=== PATIENT | female | born 1985 | race Caucasian/White ===

== ENCOUNTER 2020-04-05 11:29 | Emergency (ER) | payer OTHER ==
[2020-04-05 11:35] VITALS: BP 139/79; PULSE 70; RESP 18; TEMP 98.5
[2020-04-05] MEDS ORDERED: Acetaminophen-Codeine 300-30mg TAB PO STA (11:45)
[2020-04-05] MEDS ORDERED: diphenhydrAMINE 25 MG CAP PO STA (11:45)
--- NOTE | 2020-04-05 11:50 | ED ---
General Adult HPI - General Chief complaint: Headache Stated complaint: Pasquale note, headache Time Seen by Provider: 04/05/20 11:36 Source: patient, RN notes reviewed, old records reviewed Mode of arrival: ambulatory Limitations: no limitations - History of Present Illness Initial comments: 34-year-old female patient comes to ED for chief complaint of headache. Patient reports that she has been working a lot recently and she is very tired. She believes that this headache is due to her having no sleep. She woke up at approximately 6:30 so that she woke up she began to experience a bitemporal headache. Reports it feels similar to headache she has had in the past. Patient was scheduled to work approximately one hour later with lots of loud noises the headache got worse. Denies any red flag symptoms. Denies worst headache of life. Denies any visual changes. Denies any chance of being . Systemic: Pt denies fatigue, fever/chills, rash. Pt denies weakness, night sweats, weight loss. Neuro: Pt denies visual disturbances, syncope or pre-syncope. HEENT: Pt denies ocular discharge or irritation, otalgia, rhinorrhea, pharyngitis or notable lymphadenopathy. Cardiopulmonary: Pt denies chest pain, SOB, heart palpitations, dyspnea on exertion. Abdominal/GI: Pt denies abdominal pain, n/v/d. : Pt denies dysuria, burning w/ urination, frequency/urgency. Denies new onset urinary or bowel incontinence. MSK: Pt denies myalgia, loss of strength or function in extremities. Neuro: Pt denies new onset weakness, paresthesias. - Related Data Previous Rx's Medication Instructions Recorded Albuterol Inhaler (Mhu) [Ventolin 2 puff INHALATION Q4HR PRN #1 09/24/15 Hfa Inhaler (Mhu)] inhaler Levofloxacin [Levaquin] 750 mg PO DAILY #7 tab 09/24/15 predniSONE 50 mg PO DAILY #5 tab 09/24/15 Allergies Allergy/AdvReac Type Severity Reaction Status Date / Time Penicillins Allergy Unknown Verified 04/05/20 11:35 Childhood Review of Systems ROS Statement: Those systems with pertinent positive or pertinent negative responses have been documented in the HPI. ROS Other: All systems not noted in ROS Statement are negative. Past Medical History Past Medical History: No Reported History History of Any Multi-Drug Resistant Organisms: None Reported Past Surgical History: Ear Surgery Past Psychological History: ADD/ADHD, Anxiety, Bipolar, Depression Smoking Status: Current every day smoker Past Alcohol Use History: Occasional Past Drug Use History: Cocaine, Methamphetamine General Exam - General Exam Comments Initial Comments: Constitutional: NAD, AOX3, Pt has pleasant affect. HEENT: NC/AT, trachea midline. External ears appear normal, without discharge. Mucous membranes moist. Eyes PERRLA, EOM intact. There is no scleral icterus. No pallor noted. Cardiopulmonary: RRR, no murmurs, rubs or gallops, no JVD noted. Lungs CTAB in anterior and posterior salas. No peripheral edema. Abdominal exam: Abdomen soft and non-distended. Abdomen non-tender to palpation in all 4 quadrants. Bowel sounds active in LLQ. No hepatosplenomegaly. No ecchymosis Neuro: CN II-XII intact. No nuchal rigidity. No raccon eyes, no betts sign, no hemotympanum. No cervical spinal tenderness. MSK: No posterior calf tenderness bilaterally, homans sign negative bilaterally. Posterior tibialis and radial pulse +2 bilaterally. Sensation intact in upper and lower extremities. Full active ROM in upper and lower extremities, 5/5 stregnth. Limitations: no limitations Course Vital Signs 04/05/20 11:32 Temperature 98.5 F Pulse Rate 70 Respiratory 18 Rate Blood Pressure 139/79 O2 Sat by Pulse 99 Oximetry Medical Decision Making - Medical Decision Making 34-year-old female patient with the for chief complaint of acute headache. Patient reports a bitemporal in nature. Feels similar to headaches she is experiencing before without any red flag symptoms. Patient will tender stable, afebrile. Physical exam is acute pathology. Neurologic exam is intact. Patient was offered a CT of the brain which she is declining. Patient was that she is mostly here because she once a work note and wants to go home and sleep b ecause she is very tired. Patient will be administered Benadryl and Tylenol 3 orally and discharged with a work note. Patient not driving home. Will return to ED if condition worsens. Case discussed with Dr. Allen . Disposition Clinical Impression: Acute headache Disposition: HOME SELF-CARE Condition: Stable Instructions (If sedation given, give patient instructions): Acute Headache (ED) Additional Instructions: Continue to drink lots of water. May use Tylenol and Motrin as needed for pain. If you use Tylenol wait at least 6 hours after dose in ER. Return to ER if condition worsens in anyway. Follow up with PCP tomorrow. Is patient prescribed a controlled substance at d/c from ED?: No Referrals: Rach Bryant MD [Primary Care Provider] - 1-2 days
== END 2020-04-05 12:12 | disposition home or self-care (01) ==
LOC: EC 11:29
DX: R51 Headache (principal); F17.200 Nicotine dependence, unspecified, uncomplicated; Z88.0 Allergy status to penicillin
CPT/HCPCS: 99284

== ENCOUNTER 2020-08-10 04:46 | Emergency (ER) | payer OTHER ==
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
[2020-08-10] MEDS ORDERED: LIDOCAINE 1% INJ 10MG/ML (20 ML MDV) SQ ONE (06:07)
[2020-08-10 07:03] VITALS: PULSE 90
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
--- NOTE | 2020-08-10 08:08 | XR ---
EXAMINATION TYPE: XR hand limited RT DATE OF EXAM: 08/10/2020 CLINICAL HISTORY: pain TECHNIQUE: Frontal, lateral images of the right hand are obtained. COMPARISON: None. FINDINGS: I cannot exclude a small chip fracture arising from the base of the distal phalanx of the t humb. Radiopaque soft tissue density could reflect a foreign body. Correlate clinically. The joint sp aces appear within normal limits. The overlying soft tissue appears unremarkable. IMPRESSION: As above
--- NOTE | 2020-08-10 08:09 | XR ---
EXAMINATION TYPE: XR chest 1V portable DATE OF EXAM: 08/10/2020 COMPARISON: NONE HISTORY: Chest pain TECHNIQUE: Single frontal view of the chest is obtained. FINDINGS: There is no focal air space opacity, pleural effusion, or pneumothorax seen. The cardiac silhouette size is within normal limits. The osseous structures are intact. IMPRESSION: 1. No acute process.
[2020-08-10 08:14] VITALS: BP 135/95; RESP 16; TEMP 97.8
[2020-08-10 08:26] LABS: Amphetamine Screen,Urine Detected (NotDetected); Barbiturate Screen,Urine Not Detected (NotDetected); Benzodiazepines Screen,Urine Not Detected (NotDetected); Cocaine Screen,Urine Detected (NotDetected); Methadone Screen, Urine Not Detected (NotDetected); Opiate Screen,Urine Not Detected (NotDetected); Oxycodone Screen, Urine Not Detected (NotDetected); Phencyclidine Screen,Urine Not Detected (NotDetected); Tricyclic Antidepressant,Urine Not Detected (NotDetected); Urn Cannabinoid Scrn Detected (NotDetected)
[2020-08-10] MEDS ORDERED: CEPHALEXIN 500MG STARTER PACK 4 CAP BTL PO STA (08:28)
[2020-08-10 08:29] LABS: Appearance,Urine Cloudy (Clear); Bilirubin,Urine Negative (Negative); Blood,Urine Negative (Negative); Color,Urine Yellow; Glucose,Urine (UA) 1+ (Negative); Hyaline Casts,Urine 11 /lpf (0-2); Ketones,Urine Negative (Negative); Leukocyte Esterase,Urine Small (Negative); Mucus,Urine Many /hpf; Nitrite,Urine Negative (Negative); PH, Urine 6.5 (5.0-8.0); Protein,Urine 2+ (Negative); RBC,Urine 1 /hpf (0-5); Specific Gravity,Urine 1.024 (1.001-1.035); Squamous Epithelial Cell,Urine 3 /hpf (0-4); Urobilinogen,Urine <2.0 mg/dL (<2.0); WBC,Urine 9 /hpf (0-5)
== END 2020-08-10 08:42 | disposition home or self-care (01) ==
LOC: EEVIPCON 04:46 → EC 04:46
DX: S00.83XA Contusion of other part of head, initial encounter (principal); S62.521B Displaced fracture of distal phalanx of right thumb, initial encounter for open fracture; S16.1XXA Strain of muscle, fascia and tendon at neck level, initial encounter; F17.200 Nicotine dependence, unspecified, uncomplicated; Z88.0 Allergy status to penicillin; Z90.49 Acquired absence of other specified parts of digestive tract; Y04.2XXA Assault by strike against or bumped into by another person, initial encounter; Y92.89 Other specified places as the place of occurrence of the external cause
CPT/HCPCS: 99284 ×2; 12002 ×2; 81001; 81025; 80306; 73120; 71045; 72125; 70486; 70450; J2001

== ENCOUNTER 2021-06-14 13:28 | Inpatient (IN) | payer MEDICAID, OTHER ==
[2021-06-14 15:06] LABS: Appearance,Urine Cloudy (Clear); Bilirubin,Urine Negative (Negative); Blood,Urine Trace (Negative); Color,Urine Yellow; Glucose,Urine (UA) Negative (Negative); Ketones,Urine Negative (Negative); Leukocyte Esterase,Urine Small (Negative); Mucus,Urine Occasional /hpf; Nitrite,Urine Negative (Negative); PH, Urine 5.5 (5.0-8.0); Protein,Urine Trace (Negative); RBC,Urine 1 /hpf (0-5); Specific Gravity,Urine 1.021 (1.001-1.035); Squamous Epithelial Cell,Urine 12 /hpf (0-4); Urobilinogen,Urine <2.0 mg/dL (<2.0); WBC,Urine 8 /hpf (0-5)
[2021-06-14 15:07] LABS: Amphetamine Screen,Urine Not Detected (NotDetected); Barbiturate Screen,Urine Not Detected (NotDetected); Benzodiazepines Screen,Urine Not Detected (NotDetected); Cocaine Screen,Urine Detected (NotDetected); Methadone Screen, Urine Not Detected (NotDetected); Opiate Screen,Urine Not Detected (NotDetected); Oxycodone Screen, Urine Not Detected (NotDetected); Phencyclidine Screen,Urine Not Detected (NotDetected); Tricyclic Antidepressant,Urine Not Detected (NotDetected); Urn Cannabinoid Scrn Not Detected (NotDetected)
--- NOTE | 2021-06-14 15:48 | ED ---
Psych HPI - General Source: patient Mode of arrival: ambulatory <Rosalia Contreras - Last Filed: 06/14/21 19:29> <Maggy Chavez - Last Filed: 06/26/21 19:22> - General Chief Complaint: Psychiatric Symptoms Stated Complaint: Mental Health Time Seen by Provider: 06/14/21 15:22 - History of Present Illness Initial Comments: 35 year-old female patient presents to the emergency department for psychiatric evaluation. Patient states that she feels like she is "going crazy". 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 States she did not feel like the medication was helping any way. States she has PTSD and panic attacks. States that when she does not have medication she feels like she wants to cut herself or do drugs. States that she is trying to get into a sober house and does not want to do drugs. She denies suicidal ideation. Denies any current wounds. Denies physical illness or concerns. (Rosalia Contreras) - Related Data Previous Rx's Medication Instructions Recorded FLUoxetine HCL [PROzac] 40 mg PO DAILY 30 Days cap 06/25/21 Nicotine 21Mg/24Hr Patch [Habitrol] 1 patch TRANSDERM DAILY 30 Days 06/25/21 patch Prazosin [Minipress] 3 mg PO HS 30 Days cap 06/25/21 QUEtiapine [SEROquel] 300 mg PO HS 30 Days tab 06/25/21 traZODone HCL [Desyrel] 200 mg PO HS 30 Days tab 06/25/21 Allergies Allergy/AdvReac Type Severity Reaction Status Date / Time Penicillins Allergy Unknown Verified 06/14/21 16:12 Childhood Review of Systems ROS Other: All systems not noted in ROS Statement are negative. <Rosalia Contreras - Last Filed: 06/14/21 19:29> ROS Other: All systems not noted in ROS Statement are negative. <Maggy Chavez - Last Filed: 06/26/21 19:22> ROS Statement: Those systems with pertinent positive or pertinent negative responses have been documented in the HPI. Past Medical History Past Medical History: No Reported History History of Any Multi-Drug Resistant Organisms: None Reported Past Surgical History: Cholecystectomy, Ear Surgery Past Psychological History: ADD/ADHD, Anxiety, Bipolar, Depression Smoking Status: Current every day smoker Past Alcohol Use History: Rare Past Drug Use History: Cocaine, Methamphetamine <Rosalia Contreras - Last Filed: 06/14/21 19:29> General Exam Limitations: no limitations General appearance: alert, in no apparent distress, other (Well-developed, well- nourished adult female patient in no acute distress. Vital signs upon presentation are temperature 98.1F, pulse 86, respirations 18, blood pressure 147/96, pulse ox 95% on room air.) ENT exam: Present: normal exam, normal oropharynx, mucous membranes moist Respiratory exam: Present: normal lung sounds bilaterally. Absent: respiratory distress, wheezes, rales, rhonchi, stridor Cardiovascular Exam: Present: regular rate, normal rhythm, normal heart sounds. Absent: systolic murmur, diastolic murmur, rubs, gallop, clicks GI/Abdominal exam: Present: soft, normal bowel sounds. Absent: distended, tenderness, guarding, rebound, rigid Neurological exam: Present: alert, oriented X3, CN II-XII intact Psychiatric exam: Present: anxious. Absent: homicidal ideation, suicidal ideation Skin exam: Present: warm, dry, intact, normal color. Absent: rash <Rosalia Contreras - Last Filed: 06/14/21 19:29> Course Vital Signs 06/14/21 06/14/21 14:08 18:57 Temperature 98.1 F 97.9 F Pulse Rate 86 72 Respiratory 18 20 Rate Blood Pressure 147/96 137/87 O2 Sat by Pulse 95 96 Oximetry Medical Decision Making <Rosalia Contreras - Last Filed: 06/14/21 19:29> - Lab Data Result diagrams: 06/15/21 07:15 06/15/21 07:15 <Maggy Chavez - Last Filed: 06/26/21 19:22> - Medical Decision Making 35-year-old female patient presents to the emergency department today for evaluation of increased anxiety and urges to self-harm. Physical examination is unremarkable. She is quite anxious. She was cleared medically evaluated by emergency psychiatric services. She'll be admitted to the mental health unit for further evaluation and treatment. Patient is agreeable this plan. My attending Dr. Chavez. (Rosalia Contreras) I was available for consultation in the emergency department. The history and physical exam were done by the midlevel provider. I was consulted for this patients care. I reviewed the case with the midlevel provider and based on their presentation of the patient, I agree with the assessment, medical decision making and plan of care as documented. Chart was dictated using [email or web address] dictation software. Attempts were made to correct any dictation errors however some typographical errors may persist. Patient was seen during a [facility] due to the Covid-19 pandemic. (Maggy Chavez) - Lab Data Lab Results 06/14/21 06/14/21 06/14/21 Range/Units 14:36 14:36 18:53 Urine Color Yellow Urine Appearance Cloudy H (Clear) Urine pH 5.5 (5.0-8.0) Ur Specific [place] 1.021 (1.001-1.035) Urine Protein Trace H (Negative) Urine Glucose (UA) Negative (Negative) Urine Ketones Negative (Negative) Urine Blood Trace H (Negative) Urine Nitrite Negative (Negative) Urine Bilirubin Negative (Negative) Urine Urobilinogen <2.0 (<2.0) mg/dL Ur Leukocyte Esterase Small H (Negative) Urine RBC 1 (0-5) /hpf Urine WBC 8 H (0-5) /hpf Ur Squamous Epith Cells 12 H (0-4) /hpf Urine Mucus Occasional H (None) /hpf Urine HCG, Qual Not Detected (Not Detectd) Urine Opiates Screen Not Detected (NotDetected) Ur Oxycodone Screen Not Detected (NotDetected) Urine Methadone Screen Not Detected (NotDetected) Ur Propoxyphene Screen Not Detected (NotDetected) Ur Barbiturates Screen Not Detected (NotDetected) U Tricyclic Antidepress Not Detected (NotDetected) Ur Phencyclidine Scrn Not Detected (NotDetected) Ur Amphetamines Screen Not Detected (NotDetected) U Methamphetamines Scrn Not Detected (NotDetected) U Benzodiazepines Scrn Not Detected (NotDetected) Urine Cocaine Screen Detected H (NotDetected) U Marijuana (THC) Screen Not Detected (NotDetected) Coronavirus (PCR) Not Detected (Not Detectd) Disposition Decision to Admit Reason: Admit from EC Decision Date: 06/14/21 Decision Time: 19:30 <Rosalia Contreras - Last Filed: 06/14/21 19:29> <Maggy Chavez - Last Filed: 06/26/21 19:22> Clinical Impression: Anxiety, Depression Disposition: ADMITTED IP TO THIS HOSP Condition: Stable
[2021-06-14] MEDS ORDERED: MAG HYDROX/AL HYDROX/SIMETH 30 ML CUP PO PRN (19:50)
[2021-06-14] MEDS ORDERED: LORazepam 1 MG TAB PO PRN (19:50)
[2021-06-14] MEDS ORDERED: MAGNESIUM HYDROXIDE 2,400 MG/10 ML CUP PO PRN (19:50)
[2021-06-14] MEDS ORDERED: LORazepam 2 MG/ML INJ IM PRN (19:53)
[2021-06-14] MEDS ORDERED: traZODone HCL 100 MG TAB PO PRN (20:00)
[2021-06-15 07:39] LABS: Basophils % (A) 0 %; Eosinophils # (A) 0.1 k/uL (0-0.7); Eosinophils % (A) 1 %; HCT 44.3 % (34.0-46.0); HGB 14.5 gm/dL (11.4-16.0); Lymphocytes # (A) 3.4 k/uL (1.0-4.8); Lymphocytes % (A) 46 %; MCH 28.8 pg (25.0-35.0); MCHC 32.7 g/dL (31.0-37.0); MCV 88.2 fL (80.0-100.0); Mean Platelet Volume 7.5; Monocytes # (A) 0.5 k/uL (0-1.0); Monocytes % (A) 7 %; Neutrophils # (A) 3.1 k/uL (1.3-7.7); Neutrophils % (A) 43 %; Platelet Count 311 k/uL (150-450); RBC 5.03 m/uL (3.80-5.40); RDW 13.4 % (11.5-15.5); WBC 7.3 k/uL (3.8-10.6)
[2021-06-15 07:56] LABS: ALT 22 U/L (4-34); AST 24 U/L (14-36); African American GFR (CKD) >90 (>60 ml/min/1.73 sqM); Alkaline Phosphatase 52 U/L (38-126); Anion Gap 7 mmol/L; Blood Urea Nitrogen 12 mg/dL (7-17); Calcium 9.5 mg/dL (8.4-10.2); Carbon Dioxide 22 mmol/L (22-30); Chloride 110 mmol/L (98-107); Glucose 134 mg/dL (74-99); Non-African American GFR(CKD) >90 (>60 ml/min/1.73 sqM); Potassium 4.2 mmol/L (3.5-5.1); Sodium 139 mmol/L (137-145); Total Bilirubin 0.3 mg/dL (0.2-1.3); Total Protein 7.7 g/dL (6.3-8.2)
[2021-06-15] MEDS ORDERED: FLUoxetine HCL 20 MG CAP PO STA (10:16)
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
[2021-06-15 14:03] LABS: Chol/HDL Ratio 4.49; Cholesterol 202 mg/dL (0-200); LDL Cholesterol,Calculated 120.6 mg/dL (0.0-131.0)
[2021-06-15 14:21] LABS: Hemoglobin A1C 6.4 % (4.0-6.0)
--- NOTE | 2021-06-15 17:39 | P.HPMEDMHU ---
<Daryl Gill - Last Filed: 06/15/21 17:24> History of Present Illness H&P Date: 06/15/21 History of Presenting Illness: Patient is a 35-year-old female with a past medical history of depression, anxiety, bipolar disorder, PTSD, nicotine dependence, and polysubstance abuse with methamphetamines and crack cocaine. She is currently admitted to the inpatient mental health unit for reports of increased depression with suicidal ideations with plan to cut herself. We have been consulted for continued medical management. Upon physical examination, patient reports that she feels "very unstable". Patient states she has just had severe depression and anxiety but currently denies having suicidal ideations at this time however stated, "I'm just very unstable and who knows what would happen". She denies having any visual, auditory, or tactile hallucinations. Patient reports history of cutting herself. She states she recently got out of long-term and is having a hard time staying sober. Patient states she used to use methamphetamines and crack cocaine. She reports last time using crack cocaine was in February 2021 and last time using methamphetamines was in March 2021. Patient denies alcohol use. She does report smoking anywhere from a half a pack to a pack of cigarettes daily. Patient denies having any other complaints or concerns at this time including headache, lightheadedness, dizziness, chest pain or palpitations, shortness of breath, abdominal pain, nausea, vomiting, changes in her difficulties with her urinary or bowel function, or experiencing any numbness/tingling/weakness in her extremities. Review of systems: Pertinent positives and negatives as discussed in HPI, a complete review of systems was performed and all other systems are negative. Physical exam: Vital signs reviewed and stable. General: Nontoxic, no distress and appears stated age. Derm: Skin warm and dry, normal coloration. Head: Atraumatic, normocephalic and symmetric. Eyes: EOMs intact, no lid lag, and anicteric sclera Mouth: mucus membranes moist , cold sore to her upper lip Cardiovascular: regular rate and rhythm with normal S1S2, no murmur, positive posterior tibial pulses bilaterally, and cap refill < 2 seconds. Lungs: Respirations even, regular, and unlabored on room air. Lungs CTA bilaterally, no rhonchi, no rales, no wheezing, and no accessory muscle usage. Abdominal: soft, nontender to palpation, no guarding, no appreciable organomegaly Ext: ROM intact. No gross muscle atrophy, no edema, no contractures Neuro: Speech clear, face symmetrical and CN II-XII grossly intact with no noted focal neuro deficits Psych: Alert and oriented to person, place, time, and situation. Appropriate and pleasant affect. Assessment and Plan of Care: Polysubstance abuse -Encourage the importance of continued cessation from drugs and risks associated with continued use. Nicotine dependence -Continue to educate and encourage patient of the benefits of smoking cessation and the risks associated with continued use. -Nicotine patch Suicidal ideations, depression, anxiety, bipolar disorder, and PTSD -Management per primary admitting psychiatric team. -Suicide precautions. Thank you for allowing us to participate in the care of this pleasant patient. Do not hesitate to contact us with questions. Someone can be reached from the [facility] hospitalist group all hours of the day at [phone] or via [employer]. Past Medical History Past Medical History: No Reported History History of Any Multi-Drug Resistant Organisms: None Reported Past Surgical History: Cholecystectomy, Ear Surgery Smoking Status: Current every day smoker Medications and Allergies Home Medications Medication Instructions Recorded Confirmed Type No Known Home Medications 06/14/21 06/14/21 History Allergies Allergy/AdvReac Type Severity Reaction Status Date / Time Penicillins Allergy Unknown Verified 06/14/21 16:12 Childhood Physical Exam Vitals: Vital Signs Temp Pulse Pulse Resp BP BP Pulse Ox 06/14/21 20:48 98.2 F 95 18 140/74 06/14/21 18:57 97.9 F 72 20 137/87 96 Cranial Nerve Examination - Cranial Nerves Cranial Nerve II- Optic: Intact Cranial Nerve III- Oculomotor: Intact Cranial Nerve IV- Trochlear: Intact Cranial Nerve V- Trigeminal: Intact Cranial Nerve - Abducens: Intact Cranial Nerve VII- Facial: Intact Cranial Nerve VIII- Auditory: Intact Cranial Nerve IX- Glossopharyngeal: Intact Cranial Nerve X- Vagus: Intact Cranial Nerve XI- Accessory: Intact Cranial Nerve XII- Hypoglossal: Intact Results CBC & Chem 7: 06/15/21 07:15 06/15/21 07:15 Labs: Abnormal Lab Results - Last 24 Hours (Table) 06/15/21 06/15/21 Range/Units 07:15 07:15 Chloride 110 H (98-107) mmol/L Creatinine 0.45 L (0.52-1.04) mg/dL Glucose 134 H (74-99) mg/dL Hemoglobin A1c 6.4 H (4.0-6.0) % Triglycerides 182.0 H (0.0-149.0) mg/dL Cholesterol 202 H (0-200) mg/dL TSH 0.332 L (0.465-4.680) mIU/L <Cody Hernández - Last Filed: 06/15/21 18:48> History of Present Illness Chief Complaint: Medical management Physical Exam Osteopathic Statement: *. No significant issues noted on an osteopathic structural exam other than those noted in the History and Physical/Consult. Vitals: Vital Signs Temp Pulse Pulse Resp BP BP Pulse Ox 06/14/21 20:48 98.2 F 95 18 140/74 06/14/21 18:57 97.9 F 72 20 137/87 96 Results CBC & Chem 7: 06/15/21 07:15 06/15/21 07:15 Labs: Abnormal Lab Results - Last 24 Hours (Table) 06/15/21 06/15/21 Range/Units 07:15 07:15 Chloride 110 H (98-107) mmol/L Creatinine 0.45 L (0.52-1.04) mg/dL Glucose 134 H (74-99) mg/dL Hemoglobin A1c 6.4 H (4.0-6.0) % Triglycerides 182.0 H (0.0-149.0) mg/dL Cholesterol 202 H (0-200) mg/dL TSH 0.332 L (0.465-4.680) mIU/L Assessment and Plan Assessment: I reviewed the documentation as provided by the ANA above, who is the original author of this note. I agree with the documented assessment and plan, with the following changes: none
[2021-06-15] MEDS: cloNIDine HCL 0.1 MG TAB PO SCH (20:52)
[2021-06-15] MEDS: ACETAMINOPHEN TAB 325 MG TAB PO PRN (20:54)
[2021-06-15] MEDS: ACYCLOVIR 200 MG CAP PO SCH (21:28)
[2021-06-15] MEDS: traZODone HCL 100 MG TAB PO PRN (21:28)
[2021-06-16] MEDS: FLUoxetine HCL 20 MG CAP PO SCH (08:30)
[2021-06-16] MEDS: cloNIDine HCL 0.1 MG TAB PO SCH (08:30)
[2021-06-16] MEDS: NICOTINE 21MG/24HR PATCH TRANSDERM SCH (08:30)
[2021-06-16] MEDS: ACYCLOVIR 200 MG CAP PO SCH ×3 (08:30→21:46)
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
[2021-06-16] MEDS ORDERED: cloNIDine HCL 0.2 MG TAB PO SCH (21:00)
[2021-06-16] MEDS: traZODone HCL 100 MG TAB PO PRN (21:48)
[2021-06-16] MEDS: ACETAMINOPHEN TAB 325 MG TAB PO PRN (21:49)
[2021-06-17] MEDS: FLUoxetine HCL 20 MG CAP PO SCH (08:21)
[2021-06-17] MEDS: NICOTINE 21MG/24HR PATCH TRANSDERM SCH (08:22)
[2021-06-17] MEDS: ACYCLOVIR 200 MG CAP PO SCH ×3 (08:22→21:10)
[2021-06-17] MEDS ORDERED: cloNIDine HCL 0.1 MG TAB PO SCH (09:00)
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
[2021-06-17] MEDS ORDERED: TEMAZEPAM 15 MG CAP PO SCH (21:00)
[2021-06-17] MEDS: traZODone HCL 100 MG TAB PO PRN (21:10)
[2021-06-17] MEDS: cloNIDine HCL 0.1 MG TAB PO SCH (21:14)
[2021-06-18] MEDS: ACYCLOVIR 200 MG CAP PO SCH ×3 (08:33→20:13)
[2021-06-18] MEDS: cloNIDine HCL 0.1 MG TAB PO SCH ×2 (08:33→20:15)
[2021-06-18] MEDS: FLUoxetine HCL 20 MG CAP PO SCH (08:33)
[2021-06-18] MEDS: NICOTINE 21MG/24HR PATCH TRANSDERM SCH (08:36)
[2021-06-18] MEDS ORDERED: OLANZapine 5 MG TAB PO ONE (11:45)
[2021-06-18] MEDS: OLANZapine 5 MG TAB PO SCH ×2 (16:35→20:13)
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
[2021-06-18] MEDS: MIRTAZAPINE 15 MG TAB PO SCH (20:13)
[2021-06-19] MEDS: cloNIDine HCL 0.1 MG TAB PO SCH ×2 (08:02→20:45)
[2021-06-19] MEDS: NICOTINE 21MG/24HR PATCH TRANSDERM SCH ×2 (08:02→08:06)
[2021-06-19] MEDS: ACYCLOVIR 200 MG CAP PO SCH ×3 (08:03→21:49)
[2021-06-19] MEDS: OLANZapine 5 MG TAB PO SCH (08:03)
[2021-06-19] MEDS: FLUoxetine HCL 20 MG CAP PO SCH (08:03)
--- NOTE | 2021-06-19 17:04 | PN ---
PROGRESS NOTE DATE OF SERVICE: 06/19/2021. CHIEF COMPLAINT: The patient had worsening depression, increased thoughts of self-harm and fear that she would relapse to drugs. INTERVAL HISTORY: Patient has been doing fair. She continues to struggle with high anxiety and fears. She had a quiet day yesterday. Mostly she kept to herself. She will come out a little bit in the day area. She says that she has more problems in the evening time as a lot of her fears about bad things happening seem to escalate at night. She said that she tossed and turned all night last night. She continues to report feeling quite distressed and depressed. She notes that she has been accepted for [facility], though last Monday she was in the process of getting evaluated and they recommended she come to the hospital because of her level of distress that she was experiencing. She did not feel medicines helped her for sleep last night though she did not take the trazodone which was ordered p.r.n. she has not been able to feel comfortable enough to attend groups. She has been only walking a very limited amount of time on the unit and thus does not do much for physical activity. She tolerates her psychotropic medications. She wondered about taking Seroquel though she acknowledges that it may cause some restless legs for her, so she was comfortable with the medications where they are at. MENTAL STATUS: Patient gave fair eye contact. She was restless. She answered questions with brief responses. Her thoughts were clear. She did not say a lot. Her affect was flat. Her mood depressed. She was moderately distressed. There was no indication for thought disorder. She was oriented and alert. ASSESSMENT: I will continue the current diagnosis and treatment plan. I continue to talk with the patient regarding expectations related to her medications. We will continue Prozac 40 mg a day, though I discussed it may take some days for her to begin to see early signs of improvement. At this point, given her high level of stress, I will increase his Zyprexa. She will continue 5 mg in the morning, 5 mg in the afternoon and then 10 mg at bedtime. The additional nighttime dose in combination with Remeron and possibly trazodone may help her sleep. Overall, I would look for the increased dose of Zyprexa to help reduce some of her physiologic stress issues. I reviewed medication issues with the patient. We will focus on stabilization and discharge planning. MMSUSY / FRANN: [id number] /
[2021-06-19] MEDS: ACETAMINOPHEN TAB 325 MG TAB PO PRN (19:37)
[2021-06-19] MEDS: OLANZapine 10 MG TAB PO SCH (20:45)
[2021-06-19] MEDS: MIRTAZAPINE 15 MG TAB PO SCH (21:49)
[2021-06-19] MEDS: traZODone HCL 100 MG TAB PO PRN (23:29)
[2021-06-20] MEDS: NICOTINE 21MG/24HR PATCH TRANSDERM SCH (08:26)
[2021-06-20] MEDS: ACYCLOVIR 200 MG CAP PO SCH ×3 (08:27→20:49)
[2021-06-20] MEDS: OLANZapine 5 MG TAB PO SCH ×2 (08:27→13:17)
[2021-06-20] MEDS: FLUoxetine HCL 20 MG CAP PO SCH (08:27)
[2021-06-20] MEDS: cloNIDine HCL 0.1 MG TAB PO SCH ×2 (08:27→20:49)
--- NOTE | 2021-06-20 10:44 | PN ---
PROGRESS NOTE DATE OF SERVICE: 06/20/2021 CHIEF COMPLAINT: The patient had worsening depression, increased thoughts of self-harm and fear that she would relapse to drugs. INTERVAL HISTORY: Patient has been doing fair. She seems to be just a little bit better in her mood and outlook. She had a quiet day yesterday. She did not attend groups though said she did make an effort to do so. She believed that she was taking a shower at the time that one of the groups was announced. She does say that she was up throughout the day yesterday and did not sleep during the day. She has been taking some walks, which she says has been therapeutic. Sleep was an issue. She had difficulty falling asleep. At 11:30 she took her p.r.n. trazodone and said despite that, she seemed to be up and down every hour in the night. Today she has been up. She has been compliant with medications. She has a good appetite. Overall, she notes that things are somewhat better for her. She presents in a little brighter manner. She continues to report some fears and says she is not ready to go to [facility] because she still has worries and fears that reflect some of the PTSD issues that she struggles with. She tolerates her psychotropic medications and does feel she is gaining some benefit from her medications. MENTAL STATUS: Patient was somewhat restless. She had good eye contact. She answered questions with direct responses. Her thoughts were clear. It was noteworthy that she had a little more energetic presentation and was some what upbeat in her manner. Her affect was somewhat anxious, though significantly improved from previous days. Her mood was dysphoric. She had a worried manner and was somewhat distressed, though clearly showing improvement. There was no indication of thought disorder. She voiced no thoughts of harm. Cognition was clear. ASSESSMENT: I will continue the current diagnosis and treatment plan. I will increase her trazodone to 150 mg a day and we will make it scheduled as opposed to p.r.n. The patient clearly is showing some improvement today. I encouraged her to try to make groups, which she said she will. I also encouraged her to continue with the therapeutic walking. We will focus on stabilization and discharge planning. She has a bed available at [facility] and understands that she needs to be at the [facility] for 30 days without being able to get out to community settings. After that, we talked about the option of her either doing some volunteer work or making an effort to get a job. She had been working previously at [employer] but left that job. I anticipate the patient being discharged perhaps later in the week. GARRET / ANNA: [id number] /
[2021-06-20] MEDS: ACETAMINOPHEN TAB 325 MG TAB PO PRN ×2 (10:48→19:29)
[2021-06-20] MEDS: traZODone HCL 50 MG TAB PO SCH (20:48)
[2021-06-20] MEDS: OLANZapine 10 MG TAB PO SCH (20:49)
[2021-06-20] MEDS: MIRTAZAPINE 15 MG TAB PO SCH (20:49)
[2021-06-20] MEDS ORDERED: diphenhydrAMINE 50 MG CAP PO STA ×2 (22:17→23:21)
[2021-06-21] MEDS: cloNIDine HCL 0.1 MG TAB PO SCH ×2 (08:35→21:23)
[2021-06-21] MEDS: ACYCLOVIR 200 MG CAP PO SCH ×3 (08:35→20:13)
[2021-06-21] MEDS: NICOTINE 21MG/24HR PATCH TRANSDERM SCH ×2 (08:35→08:37)
[2021-06-21] MEDS: FLUoxetine HCL 20 MG CAP PO SCH (08:35)
[2021-06-21] MEDS: OLANZapine 5 MG TAB PO SCH (08:35)
[2021-06-21] MEDS: ACETAMINOPHEN TAB 325 MG TAB PO PRN ×2 (08:36→20:13)
--- NOTE | 2021-06-21 12:12 | P.PN ---
Progress Note - Text Progress Note Date: 06/21/21 Interval History: Patient was seen wandering the hallways and was agreeable to speak with video game script writer in the office. The patient is currently reporting that she is having a very difficult time with sleep and is expressing that she is very fearful and tearful about discharge. She reports that she is feeling increasingly restless with the changes in her medications. She expresses that this restlessness was been causing her to be unable to sleep at night and feel the need to constantly moving throughout the day. The patient does report that she has previously done well with Seroquel to address her insomnia, and initially was concerned with the side effect of weight gain, but states that Seroquel would be needed at this time to address her insomnia as well as her issues with restlessness and mood stabilization. She continues to endorse self harming urges. She reports that she had strong thoughts of hurting herself over the weekend but after staring at the scars on her thighs, opted not to. The patient has been out of her room more often and attending milieu activities. She is denying any current suicidal or homicidal ideation, intention, and/or plan. She does continue to endorse significant fear of participating in group activities or being out in public. Mental Status Exam: General Appearance: Patient appears to be stated age is alert, directable, and cooperative. The patient has blue colored hair and multiple tattoos. Behavior: Patient is calmly seated without any agitated behavior. Eye contact is very poor. Psychomotor activity is elevated, as the patient is constantly fidgeting. Speech: Patient's speech is fluent and nonpressured. Mood/Affect: Mood is sad, fearful, and anxious. Affect is congruent and tearful. Suicidal/homicidal: Patient denies any suicidal or homicidal ideation intent or plan. Perceptions: Patient denies any visual hallucinations and denies any auditory hallucinations Though content/process: There is no evidence of any delusional thought content and thought process is linear and goal-directed. Memory and concentration: AOX3, grossly intact for the purposes of this session Judgment and insight: Fair Vital Signs Temp 97.6 F 06/21/21 06:45 Pulse 70 06/21/21 06:45 Resp 16 06/21/21 06:45 BP 110/53 06/21/21 06:45 Pulse Ox 99 06/20/21 20:45 Intake & Output 06/20/21 06/21/21 06/21/21 18:59 06:59 18:59 Weight 89.4 kg Assessment Major depressive disorder, recurrent, severe Posttraumatic stress disorder Cocaine use disorder Methamphetamine use disorder Cannabis use disorder Cluster B personality traits Plan: -Patient continues to meet criteria for inpatient psychiatric admission for symptom stabilization and safety. Patient has signed adult voluntary form and medication consent and was placed in patient's chart. -We will order iron studies to check for restless leg syndrome. -Medications: Continue Prozac 40 mg by mouth daily for depression/anxiety/PTSD Continue clonidine to 0.1 mg by mouth twice a day for PTSD We will discontinue Zyprexa as it may be contributing to the patient's restlessness and possible akathisia symptoms. We will start Seroquel 100 mg by mouth at bedtime for mood stabilization/augmentation/insomnia Decrease trazodone to 100 mg by mouth at bedtime when necessary for insomnia. Continue trazodone 150 mg by mouth at bedtime for insomnia -When necessary Ativan and Haldol for agitation/aggression. -NRT - nicotine patch -SW on board for discharge planning. Encouraged the patient to participate in milieu.
[2021-06-21 15:07] LABS: % Iron Saturation 21.58 (12.00-45.00)
[2021-06-21] MEDS: traZODone HCL 50 MG TAB PO SCH (20:13)
[2021-06-21] MEDS ORDERED: QUEtiapine 100 MG TAB PO SCH (21:00)
[2021-06-22] MEDS: ACYCLOVIR 200 MG CAP PO SCH ×3 (08:38→21:12)
[2021-06-22] MEDS: NICOTINE 21MG/24HR PATCH TRANSDERM SCH (08:38)
[2021-06-22] MEDS: FLUoxetine HCL 20 MG CAP PO SCH (08:38)
[2021-06-22] MEDS: cloNIDine HCL 0.1 MG TAB PO SCH (08:39)
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
[2021-06-22] MEDS: ACETAMINOPHEN TAB 325 MG TAB PO PRN ×2 (11:53→21:13)
[2021-06-22] MEDS: BENZOCAINE 20 % GEL 15 GM TUBE MM PRN (15:01)
[2021-06-22] MEDS ORDERED: QUEtiapine 100 MG TAB PO SCH (21:00)
[2021-06-22] MEDS: traZODone HCL 50 MG TAB PO SCH (21:12)
[2021-06-22] MEDS: TEMAZEPAM 15 MG CAP PO SCH (21:12)
[2021-06-22] MEDS: PRAZOSIN 1 MG CAP PO SCH (21:13)
[2021-06-23] MEDS: FLUoxetine HCL 20 MG CAP PO SCH (08:12)
[2021-06-23] MEDS: NICOTINE 21MG/24HR PATCH TRANSDERM SCH (08:12)
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
[2021-06-23] MEDS: BENZOCAINE 20 % GEL 15 GM TUBE MM PRN (16:29)
[2021-06-23] MEDS: ACETAMINOPHEN TAB 325 MG TAB PO PRN (19:33)
[2021-06-23] MEDS: traZODone HCL 50 MG TAB PO SCH (20:58)
[2021-06-23] MEDS: TEMAZEPAM 15 MG CAP PO SCH (20:59)
[2021-06-23] MEDS: PRAZOSIN 1 MG CAP PO SCH (20:59)
[2021-06-23] MEDS ORDERED: QUEtiapine 100 MG TAB PO SCH (21:00)
[2021-06-24] MEDS: ACETAMINOPHEN TAB 325 MG TAB PO PRN ×2 (08:19→16:33)
[2021-06-24] MEDS: BENZOCAINE 20 % GEL 15 GM TUBE MM PRN (08:19)
[2021-06-24] MEDS: FLUoxetine HCL 20 MG CAP PO SCH (08:20)
[2021-06-24] MEDS: NICOTINE 21MG/24HR PATCH TRANSDERM SCH (08:20)
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
[2021-06-24] MEDS: traZODone HCL 50 MG TAB PO SCH (20:41)
[2021-06-24] MEDS: TEMAZEPAM 15 MG CAP PO SCH (20:42)
[2021-06-24] MEDS ORDERED: PRAZOSIN 1 MG CAP PO SCH (21:00)
[2021-06-24] MEDS ORDERED: QUEtiapine 100 MG TAB PO SCH (21:00)
[2021-06-25 07:05] VITALS: RESP 18
[2021-06-25] MEDS: NICOTINE 21MG/24HR PATCH TRANSDERM SCH (07:16)
[2021-06-25] MEDS: ACETAMINOPHEN TAB 325 MG TAB PO PRN (07:21)
[2021-06-25] MEDS: FLUoxetine HCL 20 MG CAP PO SCH (08:50)
[2021-06-25 08:51] VITALS: BP 116/67; PULSE 85; TEMP 97.5
[2021-06-25 09:17] VITALS: BMI 34.9
[2021-06-25] MEDS ORDERED: LORazepam 1 MG TAB PO PRN (10:22)
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
== END 2021-06-25 13:40 | disposition home or self-care (01) | DRG 885 ==
LOC: EC 13:28 → 3MHU 19:46
PROVIDERS: ADMIT Psychiatry & Neurology Psychiatry; ATTEND Psychiatry & Neurology Psychiatry
DX: F33.2 Major depressive disorder, recurrent severe without psychotic features (principal); R45.851 Suicidal ideations; F17.210 Nicotine dependence, cigarettes, uncomplicated; F22 Delusional disorders; F43.0 Acute stress reaction; F43.10 Post-traumatic stress disorder, unspecified; F60.89 Other specific personality disorders; F90.9 Attention-deficit hyperactivity disorder, unspecified type; G47.00 Insomnia, unspecified; F14.11 Cocaine abuse, in remission; F15.11 Other stimulant abuse, in remission; E66.9 Obesity, unspecified; Z68.34 Body mass index [BMI] 34.0-34.9, adult; Z79.899 Other long term (current) drug therapy; Z81.8 Family history of other mental and behavioral disorders; Z62.810 Personal history of physical and sexual abuse in childhood; Z88.0 Allergy status to penicillin
CPT/HCPCS: 80053; 80061; 80306; 81001; 81025; 82075; 83036; 83540; 83550; 84443; 85025; 87635; 99285

== ENCOUNTER → 2021-12-29 | Outpatient (CLI) | payer OTHER ==
--- NOTE | 2021-12-29 15:43 | US ---
EXAMINATION TYPE: US pelvis complete transvag DATE OF EXAM: 12/29/2021 COMPARISON: NONE CLINICAL HISTORY: E11.65 TYPE 2 W/HYPERGLYCEMIA R74.8 ELEV EJ L67.8. Morbidly obese patient. Technically difficult exam. TECHNIQUE: Transvaginal (TV) and Transabdominal (TA) . Date of LMP: 12-21-21 EXAM MEASUREMENTS: Uterus: 9.4 x 4.4 x 6.0 cm Endometrial Stripe: 0.6 cm Right Ovary: Obscured by overlying bowel gas/obesity Left Ovary: Obscured by overlying bowel gas/obesity 1. Uterus: Anteverted 2. Endometrium: wnl 3. Right Ovary: Obscured by overlying bowel gas/obesity 4. Left Ovary: Obscured by overlying bowel gas/obesity 5. Bilateral Adnexa: wnl 6. Posterior cul-de-sac: wnl IMPRESSION: 1. Extremely limited examination. No obvious pelvic abnormalities by ultrasound.
--- NOTE | 2021-12-29 16:10 | US ---
EXAMINATION TYPE: US abdomen complete DATE OF EXAM: 12/29/2021 COMPARISON: NONE CLINICAL HISTORY: E11.65 TYPE 2 W/HYPERGLYCEMIA R74.8 ELEV EJ L67.8. EXAM MEASUREMENTS: Liver Length: 18.7 cm Gallbladder Wall: Surgically absent CBD: 0.6 cm Spleen: 10.7 cm Right Kidney: 14.4 x 5.3 x 4.8 cm Left Kidney: 11.8 x 5.3 x 6.0 cm Morbidly obese patient. Technically difficult limited study. Pancreas: Obscured by bowel gas Liver: Increased attenuation, decreased visualization of vessels suggestive of fatty infiltrate, robin sures large Gallbladder: Surgically absent Evidence for sonographic Luis's sign: CBD: not well visualized, appears wnl Spleen: wnl Right Kidney: measures large Left Kidney: wnl Upper IVC: wnl Abd Aorta: limited views appear wnl, bifurcation obscured by overlying bowel gas IMPRESSION: 1. Limited abdomen ultrasound due to body habitus. 2. Hepatomegaly. Fatty infiltration is evident. 3. No acute osseous abnormality by ultrasound.
== END | disposition home or self-care (01) ==
LOC: RADUSWWP 14:30
PROVIDERS: ATTEND Family Medicine
DX: E11.65 Type 2 diabetes mellitus with hyperglycemia (principal); K76.0 Fatty (change of) liver, not elsewhere classified; R16.0 Hepatomegaly, not elsewhere classified; L67.8 Other hair color and hair shaft abnormalities
CPT/HCPCS: 76700; 76830; 76856

== ENCOUNTER → 2022-03-09 | Outpatient (CLI) | payer OTHER ==
[2022-03-09 22:47] LABS: Basophils # (A) 0.03 X 10*3/uL (0.00-0.10); Basophils % (A) 0.3 %; Eosinophils # (A) 0.05 X 10*3/uL (0.04-0.35); Eosinophils % (A) 0.5 %; HCT 38.7 % (37.2-46.3); HGB 12.7 g/dL (12.0-15.0); Immature Grans, Automated 0.2 %; Lymphocytes # (A) 4.09 X 10*3/uL (0.90-5.00); Lymphocytes % (A) 40.9 %; MCHC 32.8 g/dL (32.0-37.0); MCV 85.4 fL (80.0-97.0); Mean Platelet Volume 10.5 fL (9.5-12.2); Monocytes # (A) 0.66 X 10*3/uL (0.20-1.00); Monocytes % (A) 6.6 %; NRBC Per 100 WBC 0 /100 WBCS (0.0-0.0); Neutrophils # (A) 5.15 X 10*3/uL (1.80-7.70); Neutrophils % (A) 51.5 %; Platelet Count 334 X 10*3/uL (140-440); RBC 4.53 X 10*6/uL (4.10-5.20); RDW 13.6 % (11.5-14.5)
[2022-03-09 23:01] LABS: Hepatitis B Surface Antigen Nonreactive (Nonreactive)
[2022-03-09 23:27] LABS: Ceruloplasmin 26.3 mg/dL (20.0-60.0)
[2022-03-10 00:18] LABS: ALT 67 U/L (8-44); AST 47 U/L (13-35); African American GFR (CKD) 137.4 (60.0-200.0); Albumin 4.2 g/dL (3.8-4.9); Albumin/Globulin Ratio 1.13 (1.60-3.17); Alkaline Phosphatase 63 U/L (41-126); BUN/Creat Ratio 17.38 Ratio (12.00-20.00); Blood Urea Nitrogen 10.1 mg/dL (9.0-27.0); Calcium 9.8 mg/dL (8.7-10.3); Carbon Dioxide 21.4 mmol/L (20.0-27.5); Chloride 102 mmol/L (96-109); Globulin 3.7 g/dL (1.6-3.3); Glucose 135 mg/dL (70-110); Non-African American GFR(CKD) 118.5 (60.0-200.0); Potassium 3.9 mmol/L (3.5-5.5); Sodium 138 mmol/L (135-145); Total Bilirubin <0.15 mg/dL (0.30-1.20); Total Protein 7.9 g/dL (6.2-8.2)
[2022-03-10 00:36] LABS: Protein, Total 7.7 g/dL (6.2-8.2)
[2022-03-10 15:49] LABS: Albumin 4.24 g/dL (3.80-4.90); Gamma Globulin 1.61 g/dL (0.70-1.50)
== END | disposition home or self-care (01) ==
LOC: LABWHC1 15:44
PROVIDERS: ATTEND Nurse Practitioner Family
DX: R74.01 Elevation of levels of liver transaminase levels (principal)
CPT/HCPCS: 36415; 80053; 82103; 82390; 83516; 84165; 85025; 87340